=== PATIENT | male | born 1955 | race African-American/Black ===

== ENCOUNTER 2017-10-28 19:25 | Emergency (ER) | payer OTHER ==
[~2017-10-28] VITALS: Ht 185.4 cm; Wt 86.0 kg
[2017-10-28] MEDS ORDERED: KETOROLAC TROMETHAMINE 30 MG/ML VIAL IM ONE (22:00)
[2017-10-28 22:28] VITALS: BP 127/77
== END 2017-10-28 22:33 | disposition home or self-care (01) ==
LOC: EMS 19:26
DX: S86.891A Other injury of other muscle(s) and tendon(s) at lower leg level, right leg, initial encounter (principal); S86.892A Other injury of other muscle(s) and tendon(s) at lower leg level, left leg, initial encounter; X58.XXXA Exposure to other specified factors, initial encounter; Y93.89 Activity, other specified; Y92.89 Other specified places as the place of occurrence of the external cause; Y99.8 Other external cause status; F12.10 Cannabis abuse, uncomplicated; F17.200 Nicotine dependence, unspecified, uncomplicated
CPT/HCPCS: 96372; 99283; J1885